=== PATIENT | male | born 2005 | race Caucasian/White ===

== ENCOUNTER 2024-07-08 18:48 | Emergency (ER) | payer BC, SELFPAY ==
[2024-07-08 18:48] VITALS: BMI 34.6
[2024-07-08 18:51] VITALS: BP 160/91
[2024-07-08 19:33] VITALS: BP 135/73
--- NOTE | 2024-07-08 19:50 | ED.GENMED ---
History of Present Illness
General
Chief Complaint: Male Genito-Urinary Symptoms
Source: patient
Time Seen by Provider: 07/08/24 19:44
History of Present Illness
History of Present Illness:
19yoM with no significant past medical history presenting for evaluation of left testicular and groin pain. Patient was playing football this afternoon around 2pm when he felt a pop in his left groin with immediate pain. Pain is located mostly in
the L testicle but is also present in the LLQ. He was able to keep playing and finish the game. He is having pain with ambulation. He denies any fevers, vomiting, back pain, dysuria, hematuria.
Phy Exam
General Physical Exam
General Presentation: well appearing and no apparent distress
General age: appears stated age
General Skin: warm and dry
General Habitus: normal
General Mental: alert
ENT Exam
ENT Exam: normocephalic
Pulmonary Exam
Pulmonary Exam: no respiratory distress
Gastrointestinal Exam
Gastrointestinal Exam: soft, non distended and other (+Mild tenderness to LLQ. No palpable hernia or skin changes.)
Genitourinary Exam Male
Exam Male: circumcised, normal external genitalia, no testicular swelling and other (Mild tenderness to posterior aspect of L testicle. No scrotal edema or skin changes noted.)
Testicular Exam: Tender to palpation: Left
[place] Coma Scale
Eye Opening: Spontaneous
Verbal Response: Oriented
Motor Response: Obeys Commands
GCS Total Score: 15
Skin Exam
Skin Exam: normal color and warm/dry
Psychiatric Exam
Psychiatric Exam: normal mood/affect
Course
Orders/Labs/Results
Orders:
Orders
07/08/24 19:48
CT Abd/pelvis W Iv Cont Urgent
Comment:
Reason For Exam: LLQ pain, groin pain
US Scrotum Urgent
Comment:
Reason For Exam: L testicular pain
07/08/24 19:59
Complete Blood Count/With Diff Urgent
Comprehensive Metabolic Panel Urgent
07/08/24 20:55
Urinalysis Reflex To Culture Urgent
Date Specimen was Collected: 07/08/24
Time Specimen was Collected: 20:53
Abnormal Lab Results
07/08/24
19:59
WBC 12.6 H 10^3/uL
(4.8-10.8)
RBC 4.67 L 10^6/uL
(4.70-6.10)
Hct 38.0 L %
(39.0-52.0)
Absolute Neuts (auto) 9.6 H 10^3/uL
(1.4-6.5)
Absolute Monos (auto) 1.1 H 10^3/uL
(0.1-0.6)
Neutrophils % 75.7 H %
(42.2-75.2)
Lymphocytes % 14.4 L %
(20.5-51.1)
Glucose 104 H mg/dl
(70-99)
Total Bilirubin 1.6 H mg/dl
(0.2-1.3)
07/08/24 19:59
07/08/24 19:59
Vital Signs
Initial and Last Documented VS:
Initial Vital Signs
Temp Pulse Resp BP Pulse Ox
98.4 F 93 18 160/91 96
07/08/24 18:51 07/08/24 18:51 07/08/24 18:51 07/08/24 18:51 07/08/24 18:51
Last Documented Vital Signs
Temp Pulse Resp BP Pulse Ox
98.4 F 93 18 132/67 99
07/08/24 18:51 07/08/24 18:51 07/08/24 18:51 07/08/24 21:39 07/08/24 21:40
MDM/Problems Addressed
Differential Diagnosis Includes:
19yoM here with L groin pain after feeling a pop playing football. Pain is mostly in the L testicle. VSS. He is well appearing in no distress. There is mild LLQ tenderness as well as posterior L testicle tenderness. No skin changes or palpable
hernia. Differential diagnosis includes but is not limited to: groin strain, hernia, contusion, doubt torsion, doubt diverticulitis
Initial ED plan: Check CBC, CMP, UA, scrotal ultrasound, and CT abdomen.
*Critical Care Note
Total Time (30-74mins, 75-104mins- exclusive of procedures): Not Applicable
Update Note
Update Note:
Labs overall unremarkable. UA bland without signs of infection or microscopic hematuria. [facility] reports reviewed. No acute findings on ultrasound or CT. Patient stable for discharge. He was diagnosed with a groin strain. Supportive care
discussed. Advised f/u with PCP. He expressed understanding and is agreeable to plan. He was discharged in stable condition.
ED Attending Note
-
Portions of this chart may have been created with voice recognition software.� Occasional wrong word or��sound alike� substitutions may have occurred due to the inherent limitations of voice recognition software.
Discharge Plan
Departure
Patient Disposition: Home (Routine Discharge)
Date of Disposition: 07/08/24
Time of Disposition: 21:33
Patient with high blood pressure during this ER visit?: Yes
Discharge Problem:
Strain of left groin
Instructions: Groin Strain (DC)
Referrals:
UNKNOWN - PT DOES,NOT KNOW [Family Provider] -
Activity Restrictions/Additional Instructions:
Apply ice to affected area. Take Tylenol and ibuprofen as needed for pain.
Please follow-up with your family doctor if symptoms persist.
Interventions
Interventions:
*Risk Screen - Suicide Last Done: 07/08/24 18:54
*General Assessment Last Done: 07/08/24 18:54
*Neglect/Abuse Screening Last Done: 07/08/24 18:54
*ED COVID-19 Vaccine History Last Done: 07/08/24 18:54
*Nursing Disposition Last Done: 07/08/24 21:45
ED-Male Genitourinary Assessment Last Done: 07/08/24 20:10
Discharge Date and Time
Discharge Date/Time: 07/08/24 21:46
Print Language: BELARUSIAN
[2024-07-08 20:05] LABS: % Basophils 0.4 % (0-2); % Eosinophils 0.3 % (0-6); % Immature Granulocytes 0.3 % (0-0.5); % Lymphocytes 14.4 % (20.5-51.1); % Monocytes 8.9 % (1.7-9.3); % Neutrophils 75.7 % (42.2-75.2); Absolute Basophils 0.1 10^3/uL (0-0.2); Absolute Lymphocytes 1.8 10^3/uL (1.2-3.4); Absolute Monocytes 1.1 10^3/uL (0.1-0.6); Absolute Neutrophils 9.6 10^3/uL (1.4-6.5); Hemoglobin 13.8 g/dL (13.0-18.0); Mean Corp Hgb Conc. 36.3 g/dL (33.0-37.0); Mean Corpuscular Hgb 29.6 pg (27.0-31.0); Mean Corpuscular Volume 81.4 fL (80.0-94.0); Mean Platelet Volume 9.4 fL (7.4-10.4); Nucleated Red Blood Cells % 0 % (-); Platelet Count 346 10^3/uL (130-400); Red Blood Cell Count 4.67 10^6/uL (4.70-6.10); Red Cell Dist. Width 12.1 % (11.5-14.5); White Blood Cell Count 12.6 10^3/uL (4.8-10.8)
[2024-07-08 20:20] LABS: ALT (SGPT) 45 U/L (0-50); AST (SGOT) 44 U/L (17-59); Albumin 4.7 g/dl (3.5-5.0); Alkaline Phosphatase 113 U/L (38-126); Blood Urea Nitrogen 19 mg/dl (9-20); Calcium 9.5 mg/dl (8.4-10.2); Carbon Dioxide 23 mmol/L (22-30); Chloride 106 mmol/L (98-107); Estimated Creatinine Clearance > 125 ml/min; Glucose 104 mg/dl (70-99); Sodium 142 mmol/L (135-145); Total Bilirubin 1.6 mg/dl (0.2-1.3); Total Protein 7.6 g/dl (6.3-8.2); eGFR > 60.00
[2024-07-08 21:02] LABS: Urine Albumin Negative (Neg - Trace); Urine Bilirubin Negative (Negative); Urine Character Clear (Clear); Urine Color Straw; Urine Glucose Negative (Negative); Urine Ketone Negative (Negative); Urine Leukocyte Negative (Negative); Urine Nitrite Negative (Negative); Urine Occult Blood Negative (Negative); Urine Urobilinogen Negative (Neg - 1+)
[2024-07-08 21:39] VITALS: BP 132/67
== END 2024-07-08 21:46 | disposition home or self-care (01) ==
LOC: EMR 18:48
PROVIDERS: Physician Assistant; EMERGENCY PHYSICIAN Student in an Organized Health Care Education/Training Program
DX: S39.011A Strain of muscle, fascia and tendon of abdomen, initial encounter (principal); N50.812 Left testicular pain; R10.32 Left lower quadrant pain; X58.XXXA Exposure to other specified factors, initial encounter; Y93.61 Activity, american tackle football; Y92.321 Football field as the place of occurrence of the external cause
CPT/HCPCS: 99284; 74177; 76870; 80053; 81003; 85025; 93976; Q9967